=== PATIENT | female | born 1980 | race Caucasian/White ===

== ENCOUNTER 2016-05-28 19:40 | Emergency (ER) | payer MEDICAID, OTHER ==
[~2016-05-28] VITALS: Ht 157.5 cm; Wt 62.1 kg
[~2016-05-28 19:40] MED LIST: AMOXICILLIN500 MG ORAL; IBUPROFEN600 MG ORAL; NORCO 5-325 TA1 EACH ORAL; SYNTHROID88 MCG ORAL
[2016-05-28 20:00] VITALS: BP 113/78
[2016-05-28 20:48] LABS: BASOPHILS % (AUTO) 1.4 % (0.0-2.0); EOSINOPHILS % (AUTO) 3.6 % (0.0-3.0); LYMPHOCYTES % (AUTO) 32.5 % (20.0-45.0); MEAN CORPUSCULAR HEMOGLOBIN 27.7 PG (27.0-31.0); MEAN CORPUSCULAR HGB CONC 32.1 G/DL (32.0-36.0); MEAN CORPUSCULAR VOLUME 86 FL (80-99); MEAN PLATELET VOLUME 8.5 FL (6.5-10.1); MONOCYTES % (AUTO) 5.4 % (1.0-10.0); NEUTROPHILS % (AUTO) 57.1 % (45.0-75.0); PLATELET COUNT 265 K/UL (150-450); RED BLOOD COUNT 4.55 M/UL (4.20-5.40); RED CELL DISTRIBUTION WIDTH 11.1 % (11.6-14.8); WHITE BLOOD COUNT 8.2 K/UL (4.8-10.8)
[2016-05-28 21:07] LABS: ALANINE AMINOTRANSFERASE 5 U/L (3-33); ALBUMIN/GLOBULIN RATIO 1.6 (1.0-2.7); ANION GAP 16 (5-15); ASPARTATE AMINO TRANSFERASE 15 U/L (5-40); CALCIUM 9.3 mg/dL (8.6-10.2); CARBON DIOXIDE 26 mEQ/L (20-30); CHLORIDE 99 mEQ/L (98-107); CREATININE 0.9 mg/dL (0.5-0.9); GLOMERULAR FILTRATION RATE > 60 mL/min (>60); HEMOLYSIS 2; POTASSIUM 3.8 mEQ/L (3.4-4.9); SODIUM 141 mEQ/L (135-145); TOTAL PROTEIN 7.2 g/dL (6.6-8.7)
--- NOTE | 2016-05-28 21:41 | Emergency Room Report ---
History of Present Illness General Chief Complaint: General Complaint Source: Patient (ROSIBEL PITTMAN) Present Illness HPI The patient is a 36 year old female with a history of hypothyroidism presenting for a sensation of foreign body in the throat for the past month. The patient states that when she lies down she feels like something is stuck in the throat. Patient also describes pain over the thyroid with touch. This is described as 5/10 dull ache it does not radiate. The patient is taking Synthroid and has not seen PCP within the past year. The pt denies any other medical history. Pt denies other symptoms including N, V,F, chills, cough, fatigue, cold intolerance , dizziness, feelings of depression, CP, SOB (ROSIBEL PITTMAN) Allergies: Coded Allergies: No Known Allergies (Unverified , 12/24/14) Patient History Past Medical History: see triage record Pertinent Family History: none Last Menstrual Period: 05/21/16 Now: No Reviewed Nursing Documentation: PMH: Agreed, PSxH: Agreed (ROSIBEL PITTMAN) Nursing Documentation-PMH Past Medical History: No History, Except For (ROSIBEL PITTMAN) Review of Systems All Other Systems: negative except mentioned in HPI (ROSIBEL PITTMAN) Physical Exam Vital Signs Date Time Temp Pulse Resp B/P Pulse Ox O2 Delivery O2 Flow Rate FiO2 05/28/16 19:45 98.1 74 16 113/78 100 Room Air Sp02 EP Interpretation: reviewed, normal General Appearance: no apparent distress, alert, GCS 15, non-toxic Head: normocephalic, atraumatic Eyes: bilateral eye PERRL, bilateral eye normal inspection ENT: hearing grossly normal, normal pharynx, no angioedema, normal voice, uvula midline Neck: normal inspection, full range of motion, supple, no bony tend, tender - TTP anteriorly over the thyroid Respiratory: chest non-tender, lungs clear, normal breath sounds, speaking full sentences Musculoskeletal: back normal, gait/station normal, normal range of motion, non- tender Neurologic: alert, oriented x3, responsive, motor strength/tone normal, sensory intact, normal gait, speech normal Psychiatric: judgement/insight normal, memory normal, mood/affect normal, no suicidal/homicidal ideation Skin: normal color, no rash, warm/dry, well hydrated Lymphatic: no adenopathy (ROSIBEL PITTMAN) Medical Decision Making PA Attestation Dr. Cadena is my supervising physician. Patient management was discussed with my supervising physician (ROSIBEL PITTMAN) Diagnostic Impression: Primary Impression: Throat pain ER Course The patient is a 36 year old female with a history of hypothyroidism presenting for a sensation of foreign body in the throat for the past month. DDx considered but not limited to: hypothyroidism, hyperthyroidism, malignancy, pharyngitis, foreign body PE: vitals WNL. NAD HEENT: Oropharynx is patent. No erythema or edema. No tonsillar edema or exudate. uvula midline. Neck is soft and supple. There is tenderness to palpation over the thyroid. No edema. no erythema. Full AROM. Labs: CBC, CMP, TSH, T4 all unremarkable. Neg preg Imaging: unremarkable. The pt is signed out to Dr. Cadena at this time. Laboratory Tests Test 05/28/16 20:20 05/28/16 21:08 White Blood Count 8.2 K/UL (4.8-10.8) Red Blood Count 4.55 M/UL (4.20-5.40) Hemoglobin 12.6 G/DL (12.0-16.0) Hematocrit 39.3 % (37.0-47.0) Mean Corpuscular Volume 86 FL (80-99) Mean Corpuscular Hemoglobin 27.7 PG (27.0-31.0) Mean Corpuscular Hemoglobin Concent 32.1 G/DL (32.0-36.0) Red Cell Distribution Width 11.1 % (11.6-14.8) L Platelet Count 265 K/UL (150-450) Mean Platelet Volume 8.5 FL (6.5-10.1) Neutrophils (%) (Auto) 57.1 % (45.0-75.0) Lymphocytes (%) (Auto) 32.5 % (20.0-45.0) Monocytes (%) (Auto) 5.4 % (1.0-10.0) Eosinophils (%) (Auto) 3.6 % (0.0-3.0) H Basophils (%) (Auto) 1.4 % (0.0-2.0) Sodium Level 141 mEQ/L (135-145) Potassium Level 3.8 mEQ/L (3.4-4.9) Chloride Level 99 mEQ/L (98-107) Carbon Dioxide Level 26 mEQ/L (20-30) Anion Gap 16 (5-15) H Blood Urea Nitrogen 13 mg/dL (7-23) Creatinine 0.9 mg/dL (0.5-0.9) Estimate Glomerular Filtration Rate > 60 mL/min (>60) Glucose Level 86 mg/dL (74-106) Calcium Level 9.3 mg/dL (8.6-10.2) Total Bilirubin 0.2 mg/dL (0.0-1.2) Aspartate Amino Transferase (AST) 15 U/L (5-40) Alanine Aminotransferase (ALT) 5 U/L (3-33) Alkaline Phosphatase 50 U/L (35-104) Total Protein 7.2 g/dL (6.6-8.7) Albumin 4.5 g/dL (3.5-5.2) Globulin 2.7 g/dL Albumin/Globulin Ratio 1.6 (1.0-2.7) Thyroid Stimulating Hormone (TSH) 2.840 uIU/mL (0.300-4.500) Free Thyroxine 1.52 ng/dL (0.86-1.85) Urine HCG, Qualitative Negative Lab Results Impression CBC, CMP, TSH, T4 all unremarkable. Neg preg (ROSIBEL PITTMAN P.A.) ER Course Hospital Course 36-year-old female presents ED complaining of throat discomfort unable to swallow. History of thyroid issues Clinical course Patient signed out to me pending CT. Please see initial note for full history and physical Labs - no leukocytosis, electrolytes ok, TSH ok CT scan shows no acute pathology, no mass, no signs of airway obtruction Reassurance given to patient. Patient will followup with PMD as outpatient I feel this is a highly complex case requiring extensive working including EKG/ Rhythm strip, Xray/CT/US, Blood/urine lab work, repeat exams while in ED, and administration of strong opiates/narcotics for pain control, admission to hospital or close patient follow up. Diagnosis - throat pain Stable and discharged to home. Followup with PMD. Return to ED if symptoms recur or worsen Labs Test 05/28/16 20:20 05/28/16 21:08 White Blood Count 8.2 K/UL (4.8-10.8) Red Blood Count 4.55 M/UL (4.20-5.40) Hemoglobin 12.6 G/DL (12.0-16.0) Hematocrit 39.3 % (37.0-47.0) Mean Corpuscular Volume 86 FL (80-99) Mean Corpuscular Hemoglobin 27.7 PG (27.0-31.0) Mean Corpuscular Hemoglobin Concent 32.1 G/DL (32.0-36.0) Red Cell Distribution Width 11.1 % (11.6-14.8) Platelet Count 265 K/UL (150-450) Mean Platelet Volume 8.5 FL (6.5-10.1) Neutrophils (%) (Auto) 57.1 % (45.0-75.0) Lymphocytes (%) (Auto) 32.5 % (20.0-45.0) Monocytes (%) (Auto) 5.4 % (1.0-10.0) Eosinophils (%) (Auto) 3.6 % (0.0-3.0) Basophils (%) (Auto) 1.4 % (0.0-2.0) Sodium Level 141 mEQ/L (135-145) Potassium Level 3.8 mEQ/L (3.4-4.9) Chloride Level 99 mEQ/L (98-107) Carbon Dioxide Level 26 mEQ/L (20-30) Anion Gap 16 (5-15) Blood Urea Nitrogen 13 mg/dL (7-23) Creatinine 0.9 mg/dL (0.5-0.9) Estimat Glomerular Filtration Rate > 60 mL/min (>60) Glucose Level 86 mg/dL (74-106) Calcium Level 9.3 mg/dL (8.6-10.2) Total Bilirubin 0.2 mg/dL (0.0-1.2) Aspartate Amino Transf (AST/SGOT) 15 U/L (5-40) Alanine Aminotransferase (ALT/SGPT) 5 U/L (3-33) Alkaline Phosphatase 50 U/L (35-104) Total Protein 7.2 g/dL (6.6-8.7) Albumin 4.5 g/dL (3.5-5.2) Globulin 2.7 g/dL Albumin/Globulin Ratio 1.6 (1.0-2.7) Thyroid Stimulating Hormone (TSH) 2.840 uIU/mL (0.300-4.500) Free Thyroxine 1.52 ng/dL (0.86-1.85) Urine HCG, Qualitative Negative (JONNY CADENA M.D.) CT/MRI/US Diagnostic Results CT/MRI/US Diagnostic Results : Imaging Test Ordered: CT neck Impression Essentially unremarkable exam. No findings to explain stated clinical history of sensation of foreign body stuck in throat. (ROSIBEL PITTMAN) CT/MRI/US Diagnostic Results : Imaging Test Ordered: CT neck with contrast Impression no obstructive process. no mass. no acute process (JONNY CADENA M.D.) Last Vital Signs Date Time Temp Pulse Resp B/P Pulse Ox O2 Delivery O2 Flow Rate FiO2 05/28/16 19:45 98.1 74 16 113/78 100 Room Air Status: improved (ROSIBEL PITTMAN) Status: improved (JONNY CADENA M.D.) Disposition: HOME, SELF-CARE Condition: Stable Signed Out To: The patient is signed out to Dr. Cadena before imaging is done (ROSIBEL PITTMAN) Referrals: ANNE TELLO (PCP) ROSIBEL PITTMAN May 28, 2016 21:41 JONNY CADENA M.D. May 29, 2016 01:18
[2016-05-28 22:00] VITALS: BP 110/70
[2016-05-28 22:34] VITALS: BP 110/70
--- NOTE | 2016-05-29 10:19 | Diagnostic Imaging Report ---
Indication: DYSPHAGIA Technique: IV administration nonionic contrast. Spiral acquisitions obtained through the neck. Multiplanar reconstructions were generated. Total dose length product 477 mGycm. CTDIvol(s) 17 mGy. Radiation dose was minimized using automated exposure control Comparison: None Findings: Nasopharynx, oropharynx, hypopharynx, larynx are all unremarkable. The proximal esophagus is unremarkable. There are some prominent but nonenlarged bilateral cervical lymph nodes, but no cervical mass or adenopathy. Unremarkable thyroid. Unremarkable trachea. The is included upper lungs are clear. The bones are unremarkable. There is bilateral maxillary sinus disease. The included intracranial structures are unremarkable. The included orbits are unremarkable. Impression: Essentially unremarkable exam. No findings to explain stated clinical history of sensation of foreign body stuck in throat. Incidental finding of sinus disease as described This agrees with the preliminary interpretation provided overnight by Dr. Baumann The CT scanner at [facility] is accredited by the [employer] and the scans are performed using protocols designed to limit radiation exposure to as low as reasonably achievable to attain images of sufficient resolution adequate for diagnostic evaluation.
== END 2016-05-28 22:34 | disposition home or self-care (01) ==
LOC: EMR 20:20
DX: R07.0 Pain in throat (principal); R13.10 Dysphagia, unspecified
CPT/HCPCS: 36415; 70491; 80053; 81025; 84439; 84443; 85025; 99284; Q9967